=== PATIENT | male | born 1995 | race Caucasian/White ===

== ENCOUNTER 2024-04-06 21:04 | Emergency (ER) | payer SELFPAY ==
[2024-04-06 21:05] VITALS: BP 157/94; PULSE 106; RESP 15; TEMP 36.7; O2SAT 99
--- NOTE | 2024-04-06 21:08 | RAD_ITS ---
INDICATION: INJURY EXAMINATION/TECHNIQUE: X-RAY - LEFT XR Ankle Min 3 Views COMPARISON: None. FINDINGS: 3 views left ankle. BONES: Normal anatomic alignment without evidence of fracture or subluxation. No concerning bony lesion or abnormal sclerosis to suggest lesion. JOINTS: No significant degenerative change. SOFT TISSUES: Moderate lateral malleolar soft tissue swelling. RAD/Ankle min 3 Views IMPRESSION: No acute osseous abnormality of the left ankle. Electronically Signed: Devan Osman MD at 21:31 EST ,
[2024-04-06] MEDS: Ibuprofen 600 MG Tablet PO (22:01)
--- NOTE | 2024-04-06 22:09 | ED.RN ---
denies need for crutches, states father in law has some.
--- NOTE | 2024-04-06 22:12 | ED.VIS.LOWEX ---
HPI History of Present Illness Chief Complaint: Lower Extremity Injury Informant: patient and family Narrative Narrative: Inversion injury left ankle prior to arrival. Stepping down from porch. No head injuries. Was able to limp and here. No medications taken. States may have injured either ankle in the past did not come to the ED. States he is able to walk the next day. Prior similar symptoms: Yes PFSH PFSH Home Medications ?Medication ?Instructions ?Recorded ?Last Taken ?Type ibuprofen 600 mg tablet 600 mg PO Q6H PRN PRN pain #20 04/06/24 Unknown Rx TABLETS Allergy/AdvReac Type Severity Reaction Status Date / Time No Known Allergies Allergy Verified 04/06/24 21:04 Social History Smoking Status: Never smoker ROS ROS ED Constitutional Constitutional ED: Denies chills, fever(s) or sweats ENT ENT ED: Denies sore throat Gastrointestinal Gastrointestinal: Denies nausea or vomiting Musculoskeletal Musculoskeletal: Reports extremity pain; Denies back pain or neck pain Neurologic Neurologic: Denies paresthesias EXAM Physical Exam Const Vital Signs: 04/06/24 21:05 Temperature 98.1 F Temperature Source Temporal Pulse Rate 106 H Respiratory Rate 15 Blood Pressure 157/94 H Blood Pressure Mean 115 Pulse Ox 99 Oxygen Delivery Method Room Air Positive well nourished and well developed General Appearance ED: well developed and NAD HEENT Reports moist mucous membranes normocephalic and atraumatic Eyes General Eye ED: Yes normal appearance of both eyes Neck full ROM Chest Wall Chest: Negative for tenderness Resp normal respiratory effort and normal air movement Effort and Inspection: symmetric chest movement; Negative for respiratory distress Cardio regular rate, regular rhythm and no murmurs Peripheral Pulses: pulses 2+ throughout GI normal to inspection, nondistended, normoactive bowel sounds and non-tender Palpation: Negative for guarding or rebound tenderness present Extremity Extremity Narrative: Left lower extremity: No hip or knee tenderness. No proximal fibular head tenderness. No medial mall tenderness. Lateral malleolus swelling with tenderness. No deformities. No midfoot tenderness. There is ecchymosis noted more anterior to the lateral malleolus. No proximal fifth base tenderness. Skin intact. General Extremety ED: Yes edema and tenderness General Extremity: edema Neuro oriented x3 and no sensory deficits noted Sensorium / Orientation: awake and alert Skin no rashes or lesions noted and no wounds MDM MDM MDM Narrative Medical decision making narrative: Interventions / MDM: Differential diagnosis: Ankle sprain Diagnosis considered but do not suspect: Fracture however x-ray negative My EKG interpretation: N/A Imaging independently reviewed and interpreted by myself: 3 view left ankle: No fracture or dislocation. Soft tissue swelling. Also read by radiology. External documents reviewed: N/A Test considered but not ordered:N/A ED course: Patient treated Motrin and ice. X-ray obtained negative. Thee wrap and Aircast provided. Prescription to continue Motrin. RICE therapy. Family has crutches at home if needed. Work note provided. Outpatient follow-up. All questions were answered. Re-evaluation: stable Disposition discussed with patient/family/significant other: Patient and family Case discussed with consulting clinician: N/A This note was generated with [employer] dictation software. It may contain incorrect words, spelling, and punctuation that were not noted in checking the note before signing. Radiography Diagnostic Testing: Clinical Impression(s) from Imaging Studies Ankle X-Ray 04/06/24 21:08 IMPRESSION: No acute osseous abnormality of the left ankle. Electronically Signed: Devan Osman MD at 21:31 EST , Discharge Plan Triage Chief Complaint: Lower Extremity Injury ED Provider: Narendra White Dx/Rx/DC Orders Clinical Impression: Left ankle sprain, Injury of left ankle Instructions: ED Ankle Sprain (Adult) Prescriptions: New ibuprofen 600 mg tablet 600 mg PO Q6H PRN PRN (Reason: pain) Qty: 20 0RF Stand Alone Forms: ED Work / School Excuse Primary Care Provider: Care Physician,No Primary Referrals: Care Physician,No Primary [Primary Care Provider] - Courtney Gerber DO [[facility]] - 1-2 Weeks Activity Restrictions/Additional Instructions: X-ray negative. Use Thee wrap Aircast for support. Continue Motrin every 6 hours up to 600 mg . May continue to ice. Print Language: [place] Disposition Disposition: Home, Self Care Discharge Date/Time: 04/06/24 22:21
== END 2024-04-06 22:21 | disposition home or self-care (01) ==
PROVIDERS: Emergency Provider Emergency Medicine; Visit Provider Emergency Medicine
DX: S93.402A Sprain of unspecified ligament of left ankle, initial encounter (principal); X58.XXXA Exposure to other specified factors, initial encounter; Y92.89 Other specified places as the place of occurrence of the external cause
CPT/HCPCS: 73610; 99283